=== PATIENT | male | born 1990 | race Caucasian/White ===

== ENCOUNTER → 2017-08-07 15:19 | Outpatient (CLI) | payer OTHER, SELFPAY ==
--- NOTE | 2017-08-07 15:22 | RAD_ITS ---
STUDY: X-RAY - LEFT KNEE REASON FOR EXAM: Pain, no injury. TECHNIQUE: 4 view(s) of the knee. COMPARISON: None. FINDINGS: Normal visualized distal femur. Normal visualized proximal tibia and fibula. Normal proximal tibiofibular articulation. Normal medial femorotibial compartment. Normal lateral femorotibial compartment. There is very mild lateral subluxation of the patella. There is a joint effusion. RAD/Knee 4 or More Views IMPRESSION: Very mild lateral subluxation of the patella. Joint effusion. Electronically Signed: Delbert Hurd MD at 15:36 EDT Tel , Service support ,
== END ==
PROVIDERS: PCP Nurse Practitioner Family; Visit Provider Orthopaedic Surgery
DX: M25.562 Pain in left knee (principal); M25.462 Effusion, left knee
CPT/HCPCS: 73564

== ENCOUNTER → 2017-08-07 17:38 | Outpatient (CLI) | payer OTHER, SELFPAY ==
[2017-08-07 17:41] LABS: Pathologist Comment May follow
[2017-08-07 18:29] LABS: Synovial Fld Mononuclear WBC % 24.8 %; Synovial Fld Polynuclear WBC # 6.372 10^3/ul; Synovial Fld Polynuclear WBC % 75.2 %
[2017-08-07 19:20] LABS: RBC /Synovial Fluid 2 /mm3 (0)
[2017-08-07 19:21] LABS: AUTO B FLUID DILUENT BKGD CT WBC <0.1 RBC <0.01 (W<.1,R<.01)
[2017-08-07 19:22] LABS: Appearance /Synovial Fluid Sl Cl (CLEAR); Color / Synovial Fluid Yellow (Pale Yellow); Monocyte /Synovial Fluid 5 %; Neutrophil 95 % (0-25); Source / Synovial Fluid NG; Source- Body Fluid SYNOVIAL
[2017-08-07 19:23] LABS: Body Fluid QC Type(s) BF1Q,BF2Q
[2017-08-12 09:30] LABS: Pathologist Review Reviewed
== END ==
LOC: LABSPEC 17:38
PROVIDERS: Visit Provider Orthopaedic Surgery
DX: M25.462 Effusion, left knee (principal)
CPT/HCPCS: 87070; 87075; 87205; 89050; 89051; 89060

== ENCOUNTER → 2017-10-07 15:14 | Outpatient (CLI) | payer OTHER, SELFPAY ==
[2017-10-07 15:19] LABS: Lyme Ab Screen Interpretation REF LAB
[2017-10-07 16:09] LABS: Absolute Lymphocyte Count 2.08 X10^3/ul (0.83-4.51); Absolute Neutrophil Count 5.1 X10^3/uL (2.0-7.7); Basophil# 0.04 X10^3/uL; Basophil% 0.5 % (0-1); Eosinophil# 0.04 X10^3/uL; Eosinophils% 0.5 % (0-5); Hematocrit 40.6 % (40-54); Lymphocyte # 2.08 X10^3/ul (4.0); Lymphocyte % 26.4 % (19-41); Mean Corp Hgb Conc 34.5 g/gl (32-36); Mean Corpuscular Hgb 30.1 pg (27.0-32.0); Mean Corpuscular Volume 87.3 fL (80-94); Mean Platelet Vol. 10.4 fl (6.2-12.0); Monocyte# 0.61 X10^3/uL; Monocyte% 7.7 % (0-10); Neutrophil # 5.06 X10^3/uL (2.7-7.7); Neutrophil % 64.3 % (47-70); Platelet Count 344 K/mm3 (150-450); RBC Distribution Width CV 13.4 % (11.6-14.6); RBC Distribution Width SD 41.6 fl (35.1-43.9); Red Blood Count 4.65 M/mm3 (4.6-6.2); White Blood Count 7.9 K/mm3 (4.4-11.0)
[2017-10-07 16:11] LABS: POSITIVE COUNT NO; POSITIVE DIFFERENTIAL NO; POSITIVE MORPHOLOGY NO
[2017-10-07 16:41] LABS: Erythrocyte Sedimentation Rate 5 mm/hr (0-15)
[2017-10-07 16:43] LABS: CRP < 2.90 mg/L (0.0-3.0); Rheumatoid Factor < 10.0 IU/mL (<15)
[2017-10-09 16:18] LABS: ANTINUCLEAR ANTIBODIES DIRECT Negative (Negative)
[2017-10-16 15:56] LABS: CCP IgG Antibodies 6 units (0-19); HLA B27 Negative (.); Lyme Scn Total Ab w/Rflx <0.91 ISR (0.00-0.90)
== END ==
LOC: MTLAB 15:16
PROVIDERS: Visit Provider Orthopaedic Surgery
DX: M25.462 Effusion, left knee (principal)
CPT/HCPCS: 36415; 81374; 85025; 85652; 86038; 86140; 86200; 86431; 86618

== ENCOUNTER → 2017-12-02 17:51 | Outpatient (CLI) | payer OTHER, SELFPAY ==
[2017-12-02 18:16] LABS: Pathologist Comment May follow
[2017-12-02 18:34] LABS: RBC /Synovial Fluid 0.005 10^6/uL (0); Synovial Fld Mononuclear WBC % 88.3 %; Synovial Fld Polynuclear WBC # 0.064 10^3/ul; Synovial Fld Polynuclear WBC % 11.7 %
[2017-12-02 18:52] LABS: AUTO B FLUID DILUENT BKGD CT WBC <0.1 RBC <0.01 (W<.1,R<.01); Body Fluid QC Type(s) BF1Q,BF2Q; Source- Body Fluid SYNOVIAL; Viscosity / Synovial Fluid Sl. Viscous (HIGH)
[2017-12-02 18:53] LABS: Source / Synovial Fluid R KNEE
[2017-12-02 18:54] LABS: Appearance /Synovial Fluid Sl Cl (CLEAR); Color / Synovial Fluid Yellow (Pale Yellow)
[2017-12-02 19:08] LABS: Lymph 46 %; Monocyte /Synovial Fluid 41 %; Neutrophil 13 % (0-25)
[2017-12-03 15:05] LABS: Pathologist Review Reviewed
== END ==
LOC: LABSPEC 17:52
PROVIDERS: Visit Provider Orthopaedic Surgery
DX: M25.461 Effusion, right knee (principal)
CPT/HCPCS: 87070; 87075; 87205; 89050; 89051; 89060

== ENCOUNTER 2020-10-08 16:21 | Emergency (ER) | payer MEDICAID, SELFPAY ==
[2020-10-08 16:23] VITALS: BP 156/90; PULSE 109; RESP 18; TEMP 37.3; O2SAT 95; BMI 37.0
[2020-10-08] MEDS: Diphth,Pertuss(Acell),Tet Vac 0.5 ML Vial IM (16:40)
[2020-10-08] MEDS: Naproxen 500 MG Tablet PO (16:41)
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
[2020-10-08 17:25] VITALS: BP 157/96
== END 2020-10-08 17:27 | disposition home or self-care (01) ==
PROVIDERS: Emergency Provider Emergency Medicine
DX: S40.812A Abrasion of left upper arm, initial encounter (principal); S40.811A Abrasion of right upper arm, initial encounter; R21 Rash and other nonspecific skin eruption; F32.9 Major depressive disorder, single episode, unspecified; V86.55XA Driver of 3- or 4- wheeled all-terrain vehicle (ATV) injured in nontraffic accident, initial encounter; Z79.899 Other long term (current) drug therapy
CPT/HCPCS: 90715; 96372; 99284